=== PATIENT | male | born 1935 | race Caucasian/White ===

== ENCOUNTER → 2016-05-18 | Outpatient (REF) | payer MEDICARE ==
[~2016-05-18] MED LIST: ALBU83IN INH; ALEV220T26 PO; ASPI81TA13 PO; CARV6.25 PO; CEFD1CAP8 PO; DOKTAB2 PO; FURO40TA2 PO; HYDR-4266 PO; ISOS30TA4 PO; LEVO50TA5 PO; LISI10TA4 PO; SIMV40TA2 PO
[2016-05-18 18:28] LABS: RETIC HEMOGLOBIN CONTENT CHr 29.7 PG (24-36); RETICULOCYTE % ADVIA2120 2.6 % (0.5-1.5)
[2016-05-18 19:17] LABS: PERCENT SATURATION 12.3 % (19.7-37.4); TOTAL IRON BINDING CAPACITY 204 UG/DL (250-450); TOTAL PROTEIN 6.5 GM/DL (6.4-8.2)
[2016-05-18 19:36] LABS: FOLATE 18.8 NG/ML; VITAMIN B12 LEVEL > 2000 PG/ML
[2016-05-20 07:48] LABS: ALBUMIN 2.86 GM/DL (3.29-5.55); GAMMA GLOBULIN % 20.8 % (11.1-18.8)
== END ==
LOC: M LAB REF 16:11
PROVIDERS: ATTEND Internal Medicine
DX: D64.9 Anemia, unspecified (principal)

== ENCOUNTER 2016-05-19 07:47 | Outpatient (CLI) | payer MEDICARE ==
[~2016-05-19] VITALS: Ht 175.3 cm; Wt 77.6 kg
[~2016-05-19 07:47] MED LIST changes: +ACETAMINOPHEN TAB 650MG DOSE (2X325MG) PO SCH; -DOKTAB2 PO; +[UNRECOGNIZED DRUG - CODE] PO; +diphenhydrAMINE 25 MG CAP PO SCH
== END 2016-05-19 12:50 | disposition home or self-care (01) ==
LOC: M INFU 07:47
PROVIDERS: ATTEND Internal Medicine
DX: D64.9 Anemia, unspecified (principal); M62.81 Muscle weakness (generalized); I50.9 Heart failure, unspecified; I10 Essential (primary) hypertension; E78.5 Hyperlipidemia, unspecified; E07.9 Disorder of thyroid, unspecified; M19.90 Unspecified osteoarthritis, unspecified site; M54.2 Cervicalgia; R05 Cough; Z79.82 Long term (current) use of aspirin; Z79.51 Long term (current) use of inhaled steroids; Z79.899 Other long term (current) drug therapy; Z87.891 Personal history of nicotine dependence; Z95.0 Presence of cardiac pacemaker
CPT/HCPCS: 36430; P9016